=== PATIENT | male | born 1970 | race Two or more races ===

== ENCOUNTER 2025-04-08 17:03 | Emergency (ER) | payer MEDICAID, SELFPAY ==
--- NOTE | 2025-04-08 17:07 | ED_ITS ---
HPI - General Adult General Chief complaint: Abdominal Pain Stated complaint: nausea, vomitting, diarrhea Time Seen by Provider: 04/08/25 20:29 History of Present Illness ED Provider: Charly Mendes MD HPI narrative: 55-year-old male no significant medical or surgical history 2-3 days nausea diarrhea loose stool no blood or dark black stool. To me he denies abdominal pain despite triage denies fever recent antibiotics Related Data Previous Rx's ?Medication ?Instructions ?Recorded ondansetron 4 mg disintegrating 4 mg PO Q8H PRN nausea and 04/08/25 tablet vomiting #7 tabs Allergies Allergy/AdvReac Type Severity Reaction Status Date / Time No Known Allergies Allergy Verified 04/08/25 17:11 [facility] Social History Social History Smoked in Last 30 Days: No Use of substances other than those prescribed or required for medical reasons: No Advance Directives: No Advance Directives Information Provided: No Do you have a plan to hurt others: No Plan Physical Exam ED Exam Exam: EXAM: Gen: Alert, awake, well appearing, well hydrated. Head: Atraumatic Eyes: Anicteric, Normal conjunctiva. ENT: Moist mucosa, no pallor. ? Neck: Supple. Skin: ?No observable rash or bruising on exposed or examined skin Respiratory: Breathing comfortably, No distress.Clear to auscultation bilaterally, symmetric chest expansion, No wheeze, rales, ronchi. Cardiovascular: Regular rate and rhythm. No murmurs or rub. Well perfused periphery, warm extremities. No edema. ? Abdominal: No focal tenderness. Soft, no objective distension. No palpable masses or obvious organomegaly. ?No guarding, no rebound tenderness or other peritoneal findings. : No flank tenderness. Neuro: Alert. Gross movement of all extremities intact. ? Psych: Calm. Cooperative. MSK: No grossly visible deformity. Vital signs: See flowsheet Vital Signs: Vital Signs - 24 hr 04/08/25 17:09 04/08/25 20:53 04/08/25 22:13 Temperature 98.2 F 98.2 F 98.2 F Pulse Rate 103 H 56 56 Respiratory Rate 18 18 18 Blood Pressure 125/85 98/69 110/68 Pulse Oximetry 99 95 95 Oxygen Delivery Method Room Air Room Air Room Air BMI result Body Mass Index 27.2 Course Course Course Narrative: This is a Rapid Medical Examination (RME) performed by Sandoval Edwards PA-C in triage. Full HPI, ROS, assessment and treatment plan per primary provider in the Main ED. Hx: 55 yo M here for eval of N/V/D, abd pain x 0200 today. assoc dizziness, weakness. Plan: labs, UA, viral swabs Medications Administered Discontinued Medications Generic Name Dose Route Start Last Admin Trade Name Freq PRN Reason Stop Dose Admin Lactated Ringer's 1,000 mls @ 999 mls/hr 04/08/25 20:00 04/08/25 21:19 Lr IV 04/08/25 21:00 Infused .Q1H1M FIDE Infusion Ondansetron HCl 4 mg 04/08/25 19:54 04/08/25 20:10 Ondansetron Hcl 4 Mg/2 Ml Vial IVPUSH 04/08/25 19:55 4 mg ONCE ONE Administration Medical Decision Making Medical Decision Making MDM Narrative: Medical Decision Making: [age] with nausea vomiting. Reassuring abdominal exam no SIRS or sepsis criteria. No focal abdominal tenderness. Reassuring lab work. This is brief GI illness at this time with no alarming findings on exam or labs. Likely viral process no significant evidence of profound dehydration or electrolyte derangement requiring hospitalization. Strict return precautions and guidance at home. Zofran PRN. Preliminary Favored Differential Diagnosis: Gastroenteritis viral versus food- borne, dehydration or electrolyte derangement, gastritis, PUD, less likely enroll invasive or bacterial colitis among additional considered etiologies Testing Interpreted Independently: ?See below for details Radiology or Lab testing Results Reviewed: ?See below for details Consults: ?See below for details Independent Historians/External Chart Reviews: ?See below for details Social Determinants of Health Impacting MDM/Planning: ?See below for details Lab Data MDM Lab Attestation statement: I reviewed the patient's lab results. 04/08/25 17:20 04/08/25 17:20 Labs: Lab Results 04/08/25 04/08/25 Range/Units 17:20 21:01 WBC 6.9 (4.8-10.8) X10*3/uL RBC 5.35 (4.60-5.80) X10*6/uL Hgb 16.2 (14.0-18.0) g/dl Hct 47.4 (42.0-52.0) % MCV 88.6 (80.0-98.0) fL MCH 30.3 (27.0-33.0) pg MCHC 34.2 (31.0-36.0) g/dl RDW 13.2 (11.0-16.0) % Plt Count 265 (160-400) X10*3/uL MPV 10.6 (9.4-12.4) fL Immature Gran % (Auto) 0.1 (0.0-0.4) % Neut % (Auto) 80.3 H (45-73) % Lymph % (Auto) 8.4 L (20-40) % [place] % (Auto) 8.9 (2-11) % Eos % (Auto) 2.0 (0-4) % Baso % (Auto) 0.3 (0-2) % Lymph # (Auto) 0.6 L (1.2-4.9) X10*3/uL [place] # (Auto) 0.6 (0.1-1.2) X10*3/uL Eos # (Auto) 0.1 (0.0-0.4) X10*3/uL Baso # (Auto) 0.0 (0.0-0.2) X10*3/uL Abs Immat Gran (auto) 0.01 (0.00-0.03) X10*3/uL Absolute Neuts (auto) 5.6 (2.0-8.3) x10*3/uL Absolute Nucleated RBC 0.000 (0.0-0.012) X10*3/uL Nucleated RBC % (auto) 0.0 (0.0-0.2) /100WBC Sodium 142 (135-145) mmol/L Potassium 4.2 (3.3-5.1) mmol/L Chloride 109 H (96-108) mmol/L Carbon Dioxide 22 (22-29) mmol/L Anion Gap 15 (12-20) BUN 14 (9-16) mg/dL Creatinine 1.36 (0.5-1.4) mg/dL Estim Creat Clear Calc 57.7 Estimated GFR 54 Random Glucose 158 H (60-115) mg/dL Calcium 10.0 (8.4-10.2) mg/dL Magnesium 1.7 (1.6-2.6) mg/dL Total Bilirubin 0.6 (0.0-1.0) mg/dL AST 29 (5-37) U/L ALT 47 H (0-40) U/L Alkaline Phosphatase 63 (39-117) U/L Total Protein 8.3 H (6.5-8.0) g/dL Albumin 5.0 (3.5-5.0) g/dL Lipase 28 (8-78) U/L Urine Color Yellow Urine Appearance Clear Urine pH 5.5 (5.0-9.0) Ur Specific [place] 1.015 (1.005-1.025) Urine Protein Negative (Neg-Trace) mg/dL Urine Glucose (UA) Negative (Negative) mg/dL Urine Ketones Negative (Negative) mg/dL Urine Blood Negative (Negative) Urine Nitrite Negative (Negative) Ur Leukocyte Esterase Negative (Negative) COVID-19 (BEKA) Negative (Negative) COVID-19 Clin Com See Note Influenza Type A (CARLENE) Negative (Negative) Influenza Type B (CARLENE) Negative (Negative) Influenza A & B Note See Note Discharge Plan Discharge Clinical Impression: Gastroenteritis Patient Disposition: Home, Self-Care Instructions: Acute Nausea and Vomiting (DC), Enteritis (ED) Additional Instructions: _ DISCHARGE DIAGNOSES: Nausea vomiting and diarrhea unclear cause at this time reassuring emergency department workup HISTORY OF PRESENTATION: ?Nausea vomiting diarrhea EMERGENCY DEPARTMENT COURSE,TESTS, TREATMENTS: While in the ED today you had an examination and lab work showing reassuring blood counts and chemistry tests DISCHARGE MEDICATIONS: ?We have prescribed you Zofran which is a nausea medicine to be taken as needed for nausea 30 minutes before meals FOLLOW-UP: ?Call your primary or general physician soon as possible to discuss your symptoms, your ED visit and to discuss follow up plans Call your primary doctor follow up INSTRUCTIONS ?& RETURN PRECAUTIONS: If any symptoms change first call your primary physician, if it is after-hours your primary doctors office should have a provider facility operations manager you can speak with. If the symptoms are severe or very concerning to you then call 911 or return to the ED. Drink plenty of fluids escalate your diet slowly 1st day with gentle foods like soup or broth light butter toast and then slowly advance the diet Charly Mendes MD Emergency Physician [facility] Prescriptions: New ondansetron 4 mg tablet,disintegrating 4 mg PO Q8H PRN (Reason: nausea and vomiting) Qty: 7 0RF Interventions: ED Discharge Assessment Last Done: 04/08/25 22:13 Discharge Date/Time: 04/08/25 22:16 Print Language: [place] Citizen
[2025-04-08 17:09] VITALS: BP 125/85; PULSE 103; RESP 18; TEMP 36.8; O2SAT 99; BMI 27.2
--- OUTSIDE RECORDS SUMMARY | 2025-04-08 17:24 | XMS_ITS | Clinical Summary ---
Author Organization [facility] Address [address] [place] [address] Phone Care Team Providers Care Solar Manufacturer'S Representative Name Role Phone Physician, No Pcp Primary Care Provider Unavaila ble Social History Tobacco Use Types Packs/Day Years Used Date Smoking Tobacco: Never Assessed Sex and Gender Information Value Date Recorded Sex Assigned at Not on file Legal Sex Male 8:08 PM EDT Gender Identity Not on file Sexual Orientation Not on file Plan of Treatment Health Maintenance Due Date Last Done Comments Colorectal Cancer Screening: Colonoscopy 1970 DTaP,Tdap,and Td Vaccines (1 - Tdap) 1989 Hepatitis B Vaccines (1 of 3 - 19+ 3-dose series) 1989 Pneumococcal Vaccine: 50+ Ye ars (1 of 1 - PCV) 2020 Zoster Vaccines (1 of 2) 2020 Cholesterol Screening (Lipid Panel) 11/12/2022 HIV Screening 11/12/2022 Hepatitis C Screening 11/12/2022 Social Influencers of Health Screening 11/12/2022 Depression Screening 05/24/2024 COVID-19 Vaccine (1 - 2024-2 6 season) 2025 Influenza Vaccine (#1) 2025 RSV Immunization Adult Patie nts (1 - 1-dose 75+ series) 2045 HIB Vaccines Aged Out No longer eligi ble based on patient's age to complete this topic HPV Vaccines Aged Out No longer eligi ble based on patient's age to complete this topic Hepatitis A Vaccines Aged Out No long er eligible based on patient's age to complete this topic IPV Vaccines Aged Out No longer eligi ble based on patient's age to complete this topic MMR Vaccines Aged Out No longer eligi ble based on patient's age to complete this topic Meningococcal ACWY Vaccine Aged Out N o longer eligible based on patient's age to complete this topic Meningococcal B Vaccine Aged Out No l onger eligible based on patient's age to complete this topic RSV Immunization Patients Un lissette 20 months Aged Out No longer eligible b ased on patient's age to complete this topic Varicella Vaccines Aged Out No longer eligible based on patient's age to complete this topic Insurance Care Teams Solar Manufacturer'S Representative Relationship Specialty Start Date End Date Physician, No Pcp PCP - General 11/11/22
--- OUTSIDE RECORDS SUMMARY | 2025-04-08 17:24 | XMS_ITS | Encounter Summary ---
Author Organization [facility] Address [address] [place] [address] Care Team Providers Care Rate Marker Name Role Phone Physician, No Pcp Primary Care Provider Unavaila ble Encounter Details Date Type Department Care Team (Late st Contact Info) Description 11/11/2022 Lab Requisition [facility] [address] [place] [address] Miko Esparza MD [address] [address] Gastro-esophageal reflux disease without esophagitis Social History Tobacco Use Types Packs/Day Years Used Date Smoking Tobacco: Never Assessed Sex and Gender Information Value Date Recorded Sex Assigned at Not on file Legal Sex Male 8:08 PM EDT Gender Identity Not on file Sexual Orientation Not on file documented as of this encounter Plan of Treatment Not on file documented as of this encounter Procedures Procedure Name Priority Date/Time Associated Diagnosis Comments TISSUE EXAM Routine 11/11/2022 Gastro-esophageal reflux disease without esophagitis documented in this encounter Results * Tissue exam (11/11/2022) Final Diagnosis A. Gastric biopsy: Gastric mucosa within normal limits. H. pylori immunohistochemical stain is negative. B. Distal esophagus biopsy: Squamocolumnar junctional mucosa with mild chronic inflammation. No intestinal metaplasia or dysplasia is identified. 11/19/2022 1:10 PM EDT [facility] ([facility]) [facility] Clinical Information Rule out H. pylori Rule out Leija's esophagus 11/19/2022 1:10 PM EDT [facility] Gross Description A. Stomach, gastric bx: Gastric . 2 tissues up to 0.6 cm. ES Block A1. B. Esophagus, distal esophagus bx: Distal esophagus . Multiple tissues up to 0.3 cm. ES Block B1. 11/19/2022 1:10 PM EDT [facility] Disclaimer The interpretation o f this case included the use of immunohistochemistry, in situ hybridization, and/or special stains. These tests have not been cleared or approved by the U.S. Food and Drug Administration. The FDA has determined that such clearance or approval is not necessary. These tests are used for clinical purposes and should not be regarded as investigational or for research. This laboratory is certified to perform high complexity testing under the Clinical Laboratory Improvement Amendments of 1998. Positive and negative controls were performed and evaluated for each test (internal controls used if applicable) and deemed adequate for diagnostic interpretation. In situ hybridization assays have been validated pursuant to the CLIA regulations and are used for clinical purposes. Gross description reviewed by a pathologist within 24 hours. The technical components of this case were performed at [facility] [address] [place] [address] 11/19/2022 1:10 PM EDT [facility] Tissue Esophageal structure / Unknown 11/11/2022 11/12/2022 9:23 AM EDT Tissue specimen (specimen) Esophageal structure / Unknown 11/11/2022 11/12/2022 9:23 AM EDT Miko Esparza MD LAB PATHOLOGY ORDERABLES Final Result [facility] [address] [place] [address] documented in this encounter Visit Diagnoses Diagnosis Gastro-esophageal reflux disease without esophagitis documented in this encounter Care Teams Rate Marker Relationship Specialty Start Date End Date Physician, No Pcp PCP - General 11/11/22 documented as of this encounter
[2025-04-08 17:25] LABS: MANUAL DIFF FLAG NO
[2025-04-08 17:26] LABS: Hematocrit 47.4 % (42.0-52.0); Hemoglobin 16.2 g/dl (14.0-18.0); Imm Gran Abs Auto 0.01 X10*3/uL (0.00-0.03); Imm Gran Pct Auto 0.1 % (0.0-0.4); Lymphocytes Absolute Auto 0.6 X10*3/uL (1.2-4.9); Mean Corpuscular HGB Conc 34.2 g/dl (31.0-36.0); Mean Corpuscular Hemoglobin 30.3 pg (27.0-33.0); Mean Corpuscular Volume 88.6 fL (80.0-98.0); NRBC Abs Auto 0.000 X10*3/uL (0.0-0.012); NRBC Pct Auto 0.0 /100WBC (0.0-0.2); Platelet Count 265 X10*3/uL (160-400); Red Blood Count 5.35 X10*6/uL (4.60-5.80); White Blood Count 6.9 X10*3/uL (4.8-10.8)
[2025-04-08 17:42] LABS: Alanine Aminotransferase 47 U/L (0-40); Albumin Level 5.0 g/dL (3.5-5.0); Alkaline Phosphatase 63 U/L (39-117); Anion Gap 15 (12-20); Aspartate Amino Transferase 29 U/L (5-37); Blood Urea Nitrogen 14 mg/dL (9-16); Calcium 10.0 mg/dL (8.4-10.2); Carbon Dioxide 22 mmol/L (22-29); Chloride 109 mmol/L (96-108); Creatinine Clr Calc Pharmacy 57.7; Estimated Glomerular Filt Rate 54; IDNOW Serial# 58CA691E; Influenza B2 Negative (Negative); Lipase 28 U/L (8-78); Magnesium 1.7 mg/dL (1.6-2.6); Potassium 4.2 mmol/L (3.3-5.1); Sodium 142 mmol/L (135-145); Total Protein 8.3 g/dL (6.5-8.0)
[2025-04-08 17:43] LABS: COVID-19 Test Negative (Negative); IDNOW Serial# 55D5AD1C
--- NOTE | 2025-04-08 19:45 | PC.NURSE ---
at [facility] at this time
[2025-04-08] MEDS: Lactated Ringers 1,000 ML 999 ML IV (20:11)
[2025-04-08 20:53] VITALS: BP 98/69; PULSE 56; RESP 18; TEMP 36.8; O2SAT 95
[2025-04-08 21:12] LABS: Appearance Urine Clear; Glucose Urine UA Negative (Negative); PH 5.5 (5.0-9.0); Specific Gravity - Urine 1.015 (1.005-1.025)
[2025-04-08 22:13] VITALS: BP 110/68; PULSE 56; RESP 18; TEMP 36.8; O2SAT 95
== END 2025-04-08 22:16 | disposition home or self-care (01) ==
PROVIDERS: Physician Assistant Medical; Emergency Provider Emergency Medicine
DX: K52.9 Noninfective gastroenteritis and colitis, unspecified (principal)
CPT/HCPCS: 36415; 80053; 81003; 83690; 83735; 85025; 87502; 87635; 96361; 96374; 99284; J2405; J7120